=== PATIENT | female | born 1990 | race Two or more races ===

== ENCOUNTER 2021-03-14 18:04 | Emergency (ER) | payer MEDICAID, OTHER ==
[~2021-03-14] VITALS: Ht 160 cm; Wt 75.3 kg
[2021-03-14 18:43] VITALS: BP 104/58
== END 2021-03-14 19:07 | disposition home or self-care (01) ==
LOC: ER 18:07
DX: O9A.212 Injury, poisoning and certain other consequences of external causes complicating pregnancy, second trimester (principal); S30.1XXA Contusion of abdominal wall, initial encounter; Z3A.16 16 weeks gestation of pregnancy; V89.2XXA Person injured in unspecified motor-vehicle accident, traffic, initial encounter; Y93.89 Activity, other specified; Y92.89 Other specified places as the place of occurrence of the external cause; Y99.8 Other external cause status
CPT/HCPCS: 76805